=== PATIENT | female | born 1970 | race Caucasian/White ===

== ENCOUNTER 2017-02-28 20:15 | Emergency (ER) | payer OTHER ==
--- NOTE | 2017-03-02 00:04 | ER ---
ADMIT: 02/28/2017 RM/LOC: ER [facility] MR#: [id number] [facility] [address] [place], [place] [id number] DESTINEE HART [address] [place] [address] Emergency Room Report SEX: F AGE: 46 : 1970 DATE: 02/28/2017 TIME: 2014 Please refer to my T-sheet for complete H and P. HISTORY OF PRESENT ILLNESS: Briefly, the patient is a 46-year-old, who comes in with right upper quadrant abdominal pain. It started at 3:00 today. Rates it 05/22. She is worried she could have gallbladder disease. She ate a peanut butter cracker today for noon lunch. PHYSICAL EXAMINATION: VITAL SIGNS: Blood pressure was 194/92, pulse 83, respirations 16, temp 97, saturating 99%. Repeat blood pressure was somewhat improved. HEENT: Grossly normal. LUNGS: Clear. HEART: Regular. ABDOMEN: Soft, mildly tender in the right upper quadrant. No rebound. No guarding, nonrigid. EMERGENCY DEPARTMENT COURSE: CBC normal, chemistries normal including liver functions except for creatinine of 1.2, glucose 182. Lipase is normal. UA normal. negative. I gave her 1 L of normal saline bolus, Toradol 30 IV, and Zofran 4 IV, Reglan 10 IV, and Protonix. She was improved, she was ready for discharge. ASSESSMENT: 1. Abdominal pain. 2. Nausea. PLAN: Reglan, low-fat diet, fluids, return if worse. Zantac daily, and I want her to see Dr. Nohemi Marte this week to recheck. Cristhian Hennessy MD/ сергей JOB #: [id number] CC: Cristhian Hennessy MD, Attending Physician Nohemi Marte MD, Family Physician
== END 2017-02-28 22:38 | disposition home or self-care (01) ==
LOC: ER 20:15
DX: R10.11 Right upper quadrant pain (principal); R11.0 Nausea; E11.9 Type 2 diabetes mellitus without complications; Z88.5 Allergy status to narcotic agent; Z79.4 Long term (current) use of insulin